=== PATIENT | male | born 1965 | race Caucasian/White ===

== ENCOUNTER 2019-04-11 05:36 | Day surgery (SDC) | payer OTHER ==
[2019-04-11] MEDS ORDERED: PROPOFOL 40 ML (08:31)
== END 2019-04-11 11:10 | disposition home or self-care (01) ==
LOC: GIL 05:36 → SDS 05:36 → GIL 05:36
DX: Z12.11 Encounter for screening for malignant neoplasm of colon (principal); K64.8 Other hemorrhoids; K64.4 Residual hemorrhoidal skin tags; E11.9 Type 2 diabetes mellitus without complications; Z79.82 Long term (current) use of aspirin; Z79.84 Long term (current) use of oral hypoglycemic drugs
CPT/HCPCS: 45378; 82962